=== PATIENT | female | born 1930 | race Caucasian/White ===

== ENCOUNTER 2016-11-28 10:49 | Emergency (ER) | payer MEDICARE ==
[~2016-11-28] VITALS: Ht 152.4 cm; Wt 55.0 kg
[~2016-11-28 10:49] MED LIST: CRAN1TAB6 PO; IPRA4AER PO; L.AC1CAP6 PO; LEVO25TA9 PO; LEVO750T20 PO; LIDO700A3 TOP; MIRT15TA6 PO
[2016-11-28 10:50] VITALS: Ht 152.4 cm; Wt 55.0 kg
--- OUTSIDE RECORDS SUMMARY | 2016-11-28 10:54 | XMS REPORT | Referral Summary ---
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 Name Role Phone Donald Drake Primary Care Physician [phone] Encounter VC Date(s): 05/29/16 - 05/29/16 [facility] [place], [address] [place] [id number]- Discharge Diagnosis: Abnormal chest CT Discharge Diagnosis: Depression Discharge Disposition: 01-Home or Self Care Attending Physician: Luis Fernando Drake MD Admitting Physician: Luis Fernando Drake MD Vital Signs Most recent to 1 oldest [Reference Range]: Temperature Tympanic 35.5 degC [36.6-38.1 degC] *LOW* (05/29/16 9:27 AM) Peripheral Pulse 80 bpm Rate [60-100 bpm] (05/29/16 9:27 AM) Blood Pressure 131/71 mmHg [90-140/60-90 mmHg] (05/29/16 9:27 AM) Problem List Condition Effective Dates Status Health Status Informant Aortic valve Resolved disorder(Confirmed) Bladder Resolved problem(Confirmed) Bronchiectasis(Confi Resolved rmed) Cataract, Resolved Right(Confirmed) Cervicobrachial Resolved syndrome(Confirmed) Chicken Resolved pox(Confirmed) Cystitis(Confirmed) Resolved Diverticulosis of Resolved colon(Confirmed) Dysphagia(Confirmed) Resolved Dysphonia(Confirmed) Resolved Esophageal reflux Resolved disease(Confirmed) Hematuria(Confirmed) Resolved High Resolved cholesterol(Confirme d) Hyperpotassemia(Conf Resolved irmed) Hypertension(Confirm Resolved ed) Influenza(Confirmed) Resolved Kidney Resolved cysts(Confirmed) Kidney Resolved stones(Confirmed) Lumbago(Confirmed) Resolved Lung Resolved cancer(Confirmed) Mitral valve Resolved disorder(Confirmed) Mixed Resolved hyperlipidemia(Confi rmed) Muscle Resolved weakness(Confirmed) Neoplasm Resolved bladder(Confirmed) Neutropenia(Confirme Resolved d) Obesity(Confirmed) Active patient Orthostatic Resolved hypotension(Confirme d) Osteoarthritis(Confi Resolved rmed) Osteopenia(Confirmed Resolved ) Osteoporosis(Confirm Resolved ed) Parasitic Resolved disease(Confirmed) Pneumonia(Confirmed) Resolved Pulmonary Resolved collapse(Confirmed) Pulmonary Resolved eosinophilia(Confirm ed) Scoliosis(Confirmed) Resolved Spinal Resolved stenosis(Confirmed) Trigonitis(Confirmed Resolved ) Allergies, Adverse Reactions, Alerts Substance Reaction Severity Status ciprofloxacin Stomach Pain Active morphine Nausea/Vomiting Active Medications Culturelle Digestive Health oral capsule 1 caps, Oral, BID, # 60 caps, 0 Refill(s), Pharmacy: [facility] #[id number] Start Date: 07/01/15 Status: Ordered levothyroxine 25 mcg (0.025 mg) oral tablet 25 mcg 1 tabs, Oral, Daily, # 90 tabs, 3 Refill(s), Pharmacy: [facility], 1 tabs Oral Daily Start Date: 02/04/16 Status: Ordered mirtazapine 15 mg oral tablet See Instructions, TAKE ONE TABLET BY MOUTH EVERY NIGHT AT BEDTIME, # 30 tabs, eRx: [facility] #[id number], TAKE ONE TABLET BY MOUTH EVERY NIGHT AT BEDTIME Start Date: 05/11/16 Status: Ordered Miscellaneous DME DME Item Light weight wheelchair [facility]: [id number] DX: R26.81, See Instructions, # 1 Each, 0 Refill(s), Supply Start Date: 08/20/15 Status: Ordered Tylenol Extra Strength 320 mg, Oral, q6hr, 0 Refill(s) Start Date: 06/14/14 Status: Ordered Results No data available for this section Immunizations Vaccine Date Refusal Reason influenza virus vaccine, inactivated 05/29/16 influenza virus vaccine, inactivated 08/20/15 influenza virus vaccine, inactivated 06/14/14 pneumococcal 13-valent conjugate vaccine 05/27/15 pneumococcal 23-polyvalent vaccine 06/22/06 tetanus-diphth toxoids (Td) adult/adol 09/21/05 Procedures Procedure Date Related Diagnosis Body Site Hospitalization for treatment of Pneumonia 2014 Cystourethroscopy and fulguration 04/20/05 Cystourethroscopy and excision / fulguration 10/25/02 Cystoscopy Hip replacement R Hydrodistention of glenohumeral joint using fluoroscopic guidance Post op infection right hip SLTLaser vaporization Tonsillectomy Vocal cord Injection Social History Social History Type Response Smoking Status Never smoker Assessment and Plan Extracted from: Title: 1 Month Follow Up Author: Luis Fernando Drake MD Date: 05/29/16 Impression and Plan Diagnosis Depression (PIO13-QN F32.9, Discharge, Medical). Abnormal chest CT (RRI10-OH R93.8, Discharge, Medical). Orders Orders (Selected) Outpatient Orders Future (On Hold) CT Chest w/o Contrast: .
--- OUTSIDE RECORDS SUMMARY | 2016-11-28 10:55 | XMS REPORT | Continuity of Care Document ---
Author Author [facility] Organization [facility] Address Unknown Phone Unavailable Support Name Relationship Address Phone KONSTANTIN RAYGOZA MD Caregiver [address] [place] [address] Unavailable FRANCIE DRAKE MD Caregiver [address] [place] [address] Unavailable CHEVY CALDERON MD Caregiver [address] [place] [address] Unavailable HIMANSHU MCELROY MD Caregiver [address] [place] [address] [place] [address] Unavailable ADITYA VALERA Next Of Kin [address] [place] [address] Insurance Providers Guarantor Conchis Valera Address [address] [place] [address] Email DENIED/NO TO PT [facility] Medicare Policy Number [id number] Subscriber's Name Conchis Valera Relationship 18 Self Effective Date 96 [facility] Policy Number [id number] Subscriber's Name Conchis Valera Relationship 18 Self Group Number PLANN Advance Directives Directive Response Recorded Date/Time Ordered Resuscitation Status Full Code 08/29/16 6:52pm Resuscitation Documents on File No 08/29/16 7:35pm DPOA for Healthcare Only Y Arslan Hernandez & Anusha Valera, Samantha Burks 08/29/16 7:35pm Living Will Yes 08/29/16 7:35pm Problems Active Problems Medical Problem Onset Date Status Acute kidney injury Unknown Resolved Anemia Unknown Chronic Bacteremia due to Streptococcus pneumoniae Unknown Acute Contusion of right hip Unknown Acute Coronavirus infection Unknown Dehydration Unknown Resolved Depression Unknown Chronic Diarrhea Unknown Resolved E. coli urinary tract infection Unknown Fall Unknown Acute Hypokalemia Unknown Resolved Hypothyroidism Unknown Chronic Neck strain Unknown Acute Scoliosis Unknown Chronic Severe sepsis Unknown Acute Weakness generalized Unknown Past Problems Medical Problem Onset Date Contusion of right hip Unknown Fall Unknown Neck strain Unknown Pneumonia Unknown Medications Current Home Medications Medication Dose Units Route Directions Days Qty Instructions Start Date Albuterol/Ipratropium (Combivent Respimat Inhal [place]) 120 Puff/4 Gm Inha 2 Puff Oral Four Times Daily as needed for Cough 1 Inhaler 09/03/16 Cranberry Conc/C/Bacill Coag (Cranberry Tablet) 1 Each Tablet 1 Tab Oral Daily 08/29/16 L.acidoph & Paracasei,B.lactis (Probiotic) 1 Each Capsule 1 Cap Oral Daily 08/29/16 Levofloxacin (Levaquin) 750 Mg Tablet 750 Mg Oral Every 2 Days At 6:30AM 5 Tablet Take on 09/05, 09/07, 09/09, 09/11, and 09/13. 09/03/16 Levothyroxine Sodium 25 Mcg Tablet 25 Mcg Oral Daily 08/29/16 Lidocaine (Lidoderm) 1 Each Adh..patch 1 Patch Topically Bedtime as needed for Pain 30 Apply to low back for 12 hours and then remove. 09/03/16 Mirtazapine 15 Mg Tablet 15 Mg Oral Bedtime 08/29/16 Past Home Medications Medication Directions Ordered Status Atorvastatin Calcium (Lipitor) 20 Mg Tablet, 1 Tab Oral Daily 11/20/09 Discontinued Social History Social History Problem Response Recorded Date/Time Onset Date Status Reason for Hospitalization pneumonia 09/03/2016 4:14pm Not Applicable Not Applicable Chewing Tobacco Status No 07/06/2012 10:43am Not Applicable Not Applicable Hx Substance Use No 08/29/2016 4:47pm Not Applicable Not Applicable Hx Alcohol Use No 08/29/2016 4:47pm Not Applicable Not Applicable Has the pt used tobacco in the last 12 months No 08/29/2016 7:42pm Not Applicable Not Applicable Query Response Start Date Stop Date Smoking Status Never smoker Hospital Discharge Instructions Instructions: Care Instructions: Reason for Hospitalization: pneumonia I was in the hospital because (patient own words): fever and "out of it", weak, no appetite Discharge Diet: regular Discharge Activity: As tolerates Follow Up Appointments: Dr. Drake in approximately one week Follow-up with Noel Perry on September 10 at 10:30am. Pending Lab / Results: Will be notified Patient Instructions: -Take Levaquin 1 tablet every other day through September 13-take on odd-numbered dates. -Use Combivent 2 puffs 4 times daily as needed to help you breathe -Final (repeat) blood culture report is pending however they are negative after 3 days and it is unlikely to change. I will contact you if I'm notified of a change. Wound/Incision Care: Not applicable Durable Medical Equipment: Use your walker as before Pain Management/Treatment: Tylenol as needed, try lidocaine patch applied to the low back in the area that hurts at bedtime. You can leave the patch on for 12 hours at a time but should leave it off for the remaining 12 hours of the day. Expected Signs/Symptoms: Cough and sputum production-should improve over time. Fatigued more easily than usual. Notify Physician If: Fever, worsening weakness or falls. More trouble breathing. During Business Hours:: Please call the physician's office at After Business Hours:: Please call [phone] and have the brine well operator page the physician. Condition at time of discharge: Good Plan of Care Discharge Date 09/03/16 4:40pm Disposition 01 DISCHARGED HOME, SELF-CARE Instructions/Education Provided DI for Sepsis -- Adult Prescriptions See Medication Section Care Plan and Goals See Discharge Instructions Section Functional Status Query Response Date Recorded Mobility Status Ambulatory w/assist September 03, 2016 4:14pm Assistive Devices Front Wheeled Walker September 03, 2016 4:14pm Activity Limitations Weakness September 03, 2016 4:14pm Feeding Ability Independent September 03, 2016 4:14pm Toileting Ability Assist September 03, 2016 4:14pm Grooming Ability Assist September 03, 2016 4:14pm Dressing Ability Independent September 03, 2016 4:14pm Driving Ability Dependent September 03, 2016 4:14pm Housework Ability Assist September 03, 2016 4:14pm Meal Preparation Ability Assist September 03, 2016 4:14pm Stair Climbing Ability Assist September 03, 2016 4:14pm Ability to complete ADL's impeded by Impaired Mobility September 03, 2016 4:14pm Cognitive/Perceptual Impairments Impaired vision September 03, 2016 4:14pm Visual Assistive Devices Glasses With patient September 01, 2016 7:16pm Preferred Method of Learning Reading September 01, 2016 7:16pm Allergies, Adverse Reactions, Alerts Allergen Type Severity Reaction Status Last Updated ciprofloxacin HCl Allergy Unknown NAUSEA/GI DISTRESS Active 09/02/16 Morphine Adverse Reaction Unknown NAUSEA AND VOMITING Active 08/29/16 Ciprofloxacin Allergy Unknown Active 08/29/16 Immunizations Query Response on File Recorded Date/Time Hx Influenza Vaccination Y Apr 2016 08/29/16 7:42pm Hx Pneumococcal Vaccination Y Apr 2015 08/29/16 7:42pm Hx Influenza Vaccination Y Apr 2016 08/29/16 7:42pm Influenza Vaccine Hx 08/30/16 12:15pm Vital Signs Acute Vital Signs Vital Response Date/Time Temperature (Fahrenheit) 97.0 deg F (96.8 - 99.1) 09/03/2016 8:00am Temperature (Calculated Celsius) 36.94754 degrees C (36.0 - 37.3) 09/03/2016 8:00am Pulse Rate (adult) 97 bpm (60 - 100) 09/03/2016 9:57am Respiratory Rate 18 breaths/min (10 - 20) 09/03/2016 9:57am O2 Sat by Pulse Oximetry 98 % (90 - 100) 09/03/2016 1:31pm Oxygen Delivery Method Room Air 08/31/2016 7:09am Oxygen Delivery Method Room Air 09/03/2016 9:57am Oxygen Flow Rate 0.50 L/min 09/03/2016 4:10am Blood Pressure 142/71 mm Hg 09/03/2016 9:57am Blood Pressure Source Automatic Cuff 09/03/2016 9:57am Height (Feet) 5 feet 09/02/2016 5:22pm Height (Inches) 2.00 inches 09/02/2016 5:22pm Weight (Kilograms) 47.200 kg 09/03/2016 8:00am Body Mass Index (BMI) 18.5 08/29/2016 7:26pm Results Laboratory Results Test Name Result Units Flags Reference Collection Date/Time Result Date/ Time Comments White Blood Count 5.6 T/MM3 4.5-11.0 09/02/2016 4:40am 09/02/2016 5: 32am Red Blood Count 3.29 M/MM3 L 4.00-5.20 09/02/2016 4:40am 09/02/2016 5: 32am Hemoglobin 10.1 GM/DL L 12-16 09/02/2016 4:40am 09/02/2016 5:32am Hematocrit 31.4 % L 36-46 09/02/2016 4:40am 09/02/2016 5:32am Mean Corpuscular Volume 95.4 UM3 80-100 09/02/2016 4:40am 09/02/2016 5: 32am Mean Corpuscular Hemoglobin 30.7 UUG 26-34 09/02/2016 4:402016 5:32am Mean Corpuscular Hemoglobin Concent 32.2 GM/DL 31-37 09/02/2016 4:4009/02/2016 5:32am RDW Standard Deviation 41.4 FL 36.9-50.2 09/02/2016 4:4009/02/2016 5 :32am Platelet Count 336 T/MM3 130-400 09/02/2016 4:40am 09/02/2016 5:32am Mean Platelet Volume 9.6 UM3 9.4-12.4 09/02/2016 4:4009/02/2016 5: 32am Neutrophils (%) (Auto) 62.5 % 33-66 09/02/2016 4:4009/02/2016 5: 32am Lymphocytes (%) (Auto) 18.2 % L 23-45 09/02/2016 4:4009/02/2016 5: 32am Monocytes (%) (Auto) 13.9 % H 0-9.0 09/02/2016 4:4009/02/2016 5:32am Eosinophils (%) (Auto) 4.5 % H 0-4 09/02/2016 4:4009/02/2016 5:32am Basophils (%) (Auto) 0.4 % 0-2 09/02/2016 4:4009/02/2016 5:32am Immature Granulocyte % (Auto) 0.5 % 0.0-0.5 09/02/2016 4:402016 5:32am Absolute Neutrophils (auto) 3.5 T/MM3 1.8-7.7 09/02/2016 4:40am 2016 5:32am Absolute Lymphocytes (auto) 1.0 T/MM3 1-4.8 09/02/2016 4:402016 5:32am Absolute Monocytes (auto) 0.8 T/MM3 0-0.8 09/02/2016 4:40am 09/02/2016 5:32am Absolute Eosinophils (auto) 0.3 T/MM3 0-0.5 09/02/2016 4:402016 5:32am Absolute Basophils (auto) 0.0 T/MM3 0-0.2 09/02/2016 4:40am 09/02/2016 5:32am Absolute Immature Granulocyte (auto 0.03 T/MM3 0.00-0.03 09/02/2016 4: 40am 09/02/2016 5:32am Neutrophils % (Manual) 70.0 % H 33-66 08/31/2016 4:38am 08/31/2016 5: 59am Band Neutrophils % 13.0 % D H 0-6 08/31/2016 4:38am 08/31/2016 5:59am Lymphocytes % (Manual) 14.0 % L 23-45 08/31/2016 4:38am 08/31/2016 5: 59am Monocytes % (Manual) 3.0 % 0-9.0 08/31/2016 4:38am 08/31/2016 5:59am Eosinophils % (Manual) 2.0 % 0-4 08/29/2016 5:05pm 08/29/2016 5:35pm Reactive Lymphocytes % 2.0 % H 0-0 08/29/2016 5:05pm 08/29/2016 5:35pm Band Neutrophils # 1.4 T/MM3 08/31/2016 4:38am 08/31/2016 5:59am Absolute Neutrophils (Manual) 7.3 T/MM3 1.8-7.7 08/31/2016 4:38am 08/31 5:59am Lymphocytes # (Manual) 1.5 T/MM3 1-4.8 08/31/2016 4:38am 08/31/2016 5: 59am Monocytes # (Manual) 0.3 T/MM3 0-0.8 08/31/2016 4:38am 08/31/2016 5: 59am Eosinophils # (Manual) 0.3 T/MM3 0-0.5 08/29/2016 5:05pm 08/29/2016 5: 35pm Reactive Lymphocytes # 0.3 T/MM3 H 0-0 08/29/2016 5:05pm 08/29/2016 5: 35pm Red Cell Morphology Comment NORMAL 08/31/2016 4:38am 08/31/2016 5: 59am Icterus Index < 2 0-7 09/02/2016 4:40am 09/02/2016 5:52am Chemistry Specimen Hemolysis < 15 0-25 09/02/2016 4:40am 09/02/2016 5 :52am 0-25: Specimen Exhibited No Hemolysis. Turbidity < 20 0-20 09/02/2016 4:40am 09/02/2016 5:52am Sodium Level 140 MEQ/L 134-144 09/02/2016 4:40am 09/02/2016 5:52am Potassium Level 4.0 MEQ/L 3.6-5 09/02/2016 4:40am 09/02/2016 5:52am Chloride Level 110 MEQ/L H 98-107 09/02/2016 4:40am 09/02/2016 5:52am Carbon Dioxide Level 21 MEQ/L L 22-30 09/02/2016 4:40am 09/02/2016 5: 52am Anion Gap 9 MEQ/L 5-15 09/02/2016 4:40am 09/02/2016 5:52am Blood Urea Nitrogen 14.0 MG/DL 7-17 09/02/2016 4:40am 09/02/2016 5: 52am Creatinine 0.8 MG/DL 0.7-1.2 09/02/2016 4:40am 09/02/2016 5:52am BUN/Creatinine Ratio 18 RATIO 6-26 09/02/2016 4:40am 09/02/2016 5:52am Glomerular Filtration Rate Calc 68 09/02/2016 4:40am 09/02/2016 5: 52am Glucose Level 76 MG/DL 65-110 09/02/2016 4:40am 09/02/2016 5:52am Calculated Osmolality 269 MOSM/KG 261-280 09/02/2016 4:40am 09/02/2016 5:52am Calcium Level 8.1 MG/DL L 8.4-10.2 09/02/2016 4:40am 09/02/2016 5:52am Total Bilirubin 0.60 MG/DL 0.20-1.30 08/29/2016 5:06pm 08/29/2016 5: 33pm Alkaline Phosphatase 106 U/L 38-126 08/29/2016 5:06pm 08/29/2016 5: 33pm Total Protein 6.9 G/DL 6.3-8.2 08/29/2016 5:06pm 08/29/2016 5:33pm Albumin 3.6 G/DL 3.5-5.0 08/29/2016 5:06pm 08/29/2016 5:33pm Globulin 3.3 G/DL 2.4-3.6 08/29/2016 5:06pm 08/29/2016 5:33pm Albumin/Globulin Ratio 1.1 RATIO 1.1-2.2 08/29/2016 5:06pm 08/29/2016 5 :33pm Aspartate Amino Transf (AST/SGOT) 31 U/L 14-36 08/29/2016 5:06pm 2015 5:33pm Alanine Aminotransferase (ALT/SGPT) 28 U/L 9-52 08/29/2016 5:06pm 08/29 5:33pm Plasma Lactate 2.2 MMOL/L 0.6-2.2 08/29/2016 5:06pm 08/29/2016 5:33pm Procalcitonin 6.50 NG/ML *H 09/01/2016 6:22am 09/01/2016 7:11am PCT </ =0.5 ng/mL - sepsis not likely; PCT >0.5 and </=2 ng/mL - sepsis possible; PCT >2 ng/mL - sepsis likely; PCT >/=10 ng/mL - systemic inflammatory response - sepsis or septic shock highly indicated. Adenovirus (PCR) NEGATIVE NEGATIVE 08/29/2016 6:20pm 08/29/2016 7: 38pm Coronavirus Type 229E (PCR) NEGATIVE NEGATIVE 08/29/2016 6:20pm 08/29 7:38pm Coronavirus Type HKU1 (PCR) NEGATIVE NEGATIVE 08/29/2016 6:20pm 08/29 7:38pm Coronavirus Type NL63 (PCR) NEGATIVE NEGATIVE 08/29/2016 6:20pm 08/29 7:38pm Coronavirus Type OC43 (PCR) DETECTED A NEGATIVE 08/29/2016 6:20pm 7:38pm Human Metapneumovirus (PCR) NEGATIVE NEGATIVE 08/29/2016 6:20pm 08/29 7:38pm Enterovirus/Rhinovirus (PCR) NEGATIVE NEGATIVE 08/29/2016 6:20pm 7:38pm Influenza Virus Type A (PCR) NEGATIVE NEGATIVE 08/29/2016 6:20pm 7:38pm Influenza Virus Type B (PCR) NEGATIVE NEGATIVE 08/29/2016 6:20pm 7:38pm Parainfluenza Type 1 (PCR) NEGATIVE NEGATIVE 08/29/2016 6:20pm 2015 7:38pm Parainfluenza Type 2 (PCR) NEGATIVE NEGATIVE 08/29/2016 6:20pm 2015 7:38pm Parainfluenza Type 3 (PCR) NEGATIVE NEGATIVE 08/29/2016 6:20pm 2015 7:38pm Parainfluenza Type 4 (PCR) NEGATIVE NEGATIVE 08/29/2016 6:20pm 2015 7:38pm Respiratory Syncytial Virus (PCR) NEGATIVE NEGATIVE 08/29/2016 6:20pm 08/29/2016 7:38pm Bordetella parapertussis DNA (PCR) NEGATIVE NEGATIVE 08/29/2016 6: 20pm 08/29/2016 7:38pm Chlamydia pneumoniae DNA (PCR) NEGATIVE NEGATIVE 08/29/2016 6:20pm 7:38pm Mycoplasma pneumoniae (PCR) NEGATIVE NEGATIVE 08/29/2016 6:20pm 08/29 7:38pm Urine Collection Type STRAIGHT CATH 08/29/2016 5:52pm 08/29/2016 5: 56pm Urine Color YELLOW YELLOW 08/29/2016 5:52pm 08/29/2016 5:56pm Urine Turbidity SL CLOUDY CLEAR 08/29/2016 5:52pm 08/29/2016 5:56pm Urine Specific [place] 1.015 1.015-1.025 08/29/2016 5:52pm 2015 5:56pm Urine pH 5.5 5.0-8.0 08/29/2016 5:52pm 08/29/2016 5:56pm Urine Leukocyte Esterase NEGATIVE NEGATIVE 08/29/2016 5:52pm 2015 5:56pm Urine Nitrite POSITIVE A NEGATIVE 08/29/2016 5:52pm 08/29/2016 5:56pm Urine Protein NEGATIVE NEGATIVE 08/29/2016 5:52pm 08/29/2016 5:56pm Urine Glucose (UA) NEGATIVE NEGATIVE 08/29/2016 5:52pm 08/29/2016 5: 56pm Urine Ketones NEGATIVE NEGATIVE 08/29/2016 5:52pm 08/29/2016 5:56pm Urine Urobilinogen 0.2 EU/DL NORMAL 08/29/2016 5:52pm 08/29/2016 5: 56pm Urine Bilirubin NEGATIVE NEGATIVE 08/29/2016 5:52pm 08/29/2016 5: 56pm Urine Blood NEGATIVE NEGATIVE 08/29/2016 5:52pm 08/29/2016 5:56pm Urine WBC NONE SEEN /HPF 0-5 08/29/2016 5:52pm 08/29/2016 6:04pm Urine RBC NONE SEEN /HPF 0-3 08/29/2016 5:52pm 08/29/2016 6:04pm Urine Bacteria 2+ H NEGATIVE 08/29/2016 5:52pm 08/29/2016 6:04pm Urine Culture Indicated CULT REFLEXED &SETUP 08/29/2016 5:52pm 6:04pm Microbiology Results Procedure Source Organism/Result Collection Date/Time Result Date/Time Result Status Urine Culture Urine, Straight Cath DIPHTHEROID BACILLUS 08/29/2016 6:04pm 08/31/2016 9:26am Final ESCHERICHIA COLI 08/29/2016 6:04pm 08/31/2016 9:26am Final Blood Culture Peripheral/Iv Start NO GROWTH AFTER 72 HOURS 08/31/2016 4: 38am 09/03/2016 4:49am Preliminary Name: CONCHIS VALERA Unit #: [id number] : 1930 Sex: F Admit Date: 08/29/16 Loc / Svc: MED Discharge Date: DIAGNOSTIC IMAGING REPORT Report #: [id number] [facility] M[place] Hamm INDICATION: ITS.REASON: pneumonia PROCEDURE: CHEST 2-VIEWS UPRIGHT (PA \\T\\ LAT) Encounter: Initial COMPARISON: August 29, 2016 FINDINGS: Continued lobar consolidation in the right middle lobe with small bilateral effusions. Small amount of left basilar airspace disease is new. Left apical pleural thickening. No pneumothorax. Heart size and mediastinal contours are stable. Impression: Continued right middle lobe consolidation with increasing small effusions. . Procedures No known history of procedures. Encounters Encounter Location Arrival/Admit Date Discharge/Depart Date Attending Provider Discharged Inpatient [facility] 08/29/16 6:52pm 09/03/16 4:40pm CHEVY CALDERON MD
--- OUTSIDE RECORDS SUMMARY | 2016-11-28 10:55 | XMS REPORT | Referral Summary ---
Author Author [facility], Family Medicine Organization [facility] Address Unknown Phone Unavailable Care Team Providers Care Enamel Buffer Name Role Phone Donald Drake Primary Care Physician [phone] Encounter VC Date(s): 09/10/16 - 09/10/16 [facility], [address] [place] [address]- Discharge Disposition: 01-Home or Self Care Attending Physician: Serg Cade APRN Admitting Physician: Serg Cade APRN Vital Signs Most recent to 1 oldest [Reference Range]: Temperature Tympanic 35.0 degC [36.6-38.1 degC] *LOW* (09/10/16 10:24 AM) Peripheral Pulse 84 bpm Rate [60-100 bpm] (09/10/16 10:24 AM) Respiratory Rate 16 br/min [14-20 br/min] (09/10/16 10:24 AM) Blood Pressure 136/62 mmHg [90-140/60-90 mmHg] (09/10/16 10:24 AM) Problem List Condition Effective Dates Status [...] Stomach Pain Active morphine Nausea/Vomiting Active Medications Combivent Respimat 2 puffs, Inhalation, QID, as needed for cough, 0 Refill(s) Start Date: 09/04/16 Status: Ordered Culturelle Digestive Health oral capsule 1 caps, Oral, BID, # 60 caps, 0 Refill(s), Pharmacy: [facility] #[id number] Start Date: 07/01/15 Status: Ordered levoFLOXacin 750 mg oral tablet 750 mg 1 tabs, Oral, q48hr, 0 Refill(s) Start Date: 09/04/16 Stop Date: 09/14/16 Status: Ordered levothyroxine 25 mcg (0.025 mg) oral tablet 25 mcg 1 tabs, Oral, Daily, # 90 tabs, 3 Refill(s), Pharmacy: [facility], 1 tabs Oral Daily Start Date: 02/04/16 Status: Ordered Lidoderm 5% topical film 1 patches, Topical, Daily, 0 Refill(s) Start Date: 09/04/16 Status: Ordered mirtazapine 15 mg oral tablet See Instructions, TAKE ONE TABLET BY MOUTH EVERY NIGHT AT BEDTIME, # 90 tabs, 3 Refill(s), Pharmacy: [facility] #[id number], TAKE ONE TABLET BY MOUTH EVERY NIGHT AT BEDTIME Start Date: 06/11/16 Status: Ordered Miscellaneous DME DME Item Light weight wheelchair [facility]: [id number] DX: R26.81, See Instructions, # 1 Each, 0 Refill(s), Supply Start Date: 08/20/15 Status: Ordered traMADol See Instructions, Oral, 0 Refill(s) Start Date: 09/10/16 Status: Ordered Tylenol Extra Strength 320 mg, Oral, q6hr, 0 Refill(s) Start Date: 06/14/14 Status: Ordered Results Hematology Most recent to 1 oldest [Reference Range]: WBC [4.8-10.8 7.4 10*3/uL 10*3/uL] (09/10/16 11:22 AM) RBC [4.00-5.20] 3.57 *LOW* (09/10/16:22 AM) Hgb [12.0-16.0 10.6 gm/dL gm/dL] *LOW* (09/10/16 AM) Hct [37.0-47.0 %] 34.9 % *LOW* (09/10/16: AM) MCV [82.0-99.0 fL] 97.8 fL (09/10/16: AM) MCH [27.0-32.0 pg] 29.7 pg (09/10/16: AM) MCHC [32.0-36.0 30.4 gm/dL gm/dL] *LOW* (09/10/16: AM) RDW [11.5-14.5 %] 13.2 % (09/10/16:22 AM) Platelet [150-400 633 10*3/uL 10*3/uL] *HI* (09/10/16: AM) MPV [8.8-14.8 fL] 8.4 fL *LOW* (09/10/16:22 AM) Immature 0.9 % Granulocytes (09/10/16:22 AM) [0.0-1.0 %] Neutrophils [51-75 68 % %] (09/10/16: AM) Lymphocytes [20-46 14 % %] *LOW* (09/10/16:22 AM) Monocytes [4-11 %] 15 % *HI* (09/10/16: AM) Eosinophils [0-4 %] 2 % (09/10/16: AM) Basophils [0-2 %] 0 % (09/10/16:22 AM) Neutro Absolute 5.01 [1.90-7.00] (09/10/16:22 AM) Lymph Absolute 1.06 [0.80-3.30] (09/10/16: AM) Churchill Absolute 1.11 [0.30-1.00] *HI* (09/10/16 11:22 AM) Eos Absolute 0.14 [0.00-0.50] (09/10/16 11:22 AM) Baso Absolute 0.02 [0.00-0.20] (09/10/16 11:22 AM) Chemistry Most recent to 1 oldest [Reference Range]: Sodium Lvl [135-144 142 mEq/L mEq/L] (09/10/16:22 AM) Potassium Lvl 4.8 mEq/L [3.5-5.2 mEq/L] (09/10/16 11:22 AM) Chloride [99-111 107 mEq/L mEq/L] (09/10/16:22 AM) CO2 [22-31 mEq/L] 27 mEq/L (09/10/16:22 AM) AGAP [3-20] 8 (09/10/16:22 AM) BUN [10-20 mg/dL] 23 mg/dL *HI* (09/10/16:22 AM) Glucose Lvl [70-99 89 mg/dL mg/dL] (09/10/16 11:22 AM) Creatinine Lvl 1.20 mg/dL [0.57-1.11 mg/dL] *HI* (09/10/16 11:22 AM) eGFR [>60 mL/min] 43 mL/min 1 *ABN* (09/10/16:22 AM) Calcium Lvl 8.4 mg/dL [8.9-10.5 mg/dL] *LOW* (09/10/16 11:22 AM) 1Result Comment: Multiply eGFR results by 1.21 for race. Immunizations Given and Recorded Vaccine Date Status Refusal Reason influenza virus vaccine, inactivated 05/29/16 Given influenza virus vaccine, inactivated 08/20/15 Given influenza virus vaccine, inactivated 06/14/14 Recorded pneumococcal 13-valent conjugate vaccine 05/27/15 Given pneumococcal 23-polyvalent vaccine 06/22/06 Recorded tetanus-diphth toxoids (Td) adult/adol 09/21/05 Given Procedures Procedure Date Related Diagnosis Body Site Hospitalization for treatment of Pneumonia 2014 Cystourethroscopy and fulguration 04/20/05 Cystourethroscopy and excision / fulguration 10/25/02 Cystoscopy Hip replacement R Hydrodistention of glenohumeral joint using fluoroscopic guidance Post op infection right hip SLTLaser vaporization Tonsillectomy Vocal cord Injection Social History Social History Type Response Smoking Status Never smoker Assessment and Plan No data available for this section
--- OUTSIDE RECORDS SUMMARY | 2016-11-28 10:56 | XMS REPORT | Referral Summary ---
Author Author [facility] Organization [facility] Address Unknown Phone Unavailable Care Team Providers Care Glass Or Mirror Inspector Name Role Phone Donald Drake Primary Care Physician [phone] Encounter VC Date(s): 10/15/16 - 10/15/16 [facility], [address] [place] [address]- Discharge Diagnosis: Acute UTI Discharge Diagnosis: Abnormal chest CT Discharge Disposition: 01-Home or Self Care Attending Physician: Luis Fernando Drake MD Admitting Physician: Luis Fernando Drake MD Vital Signs Most recent to 1 oldest [Reference Range]: Temperature Tympanic 35.9 degC [36.6-38.1 degC] *LOW* (10/15/16 10:51 AM) Peripheral Pulse 99 bpm Rate [60-100 bpm] (10/15/16 10:51 AM) Blood Pressure 140/70 mmHg [90-140/60-90 mmHg] (10/15/16 10:51 AM) Problem List Condition Effective Dates Status [...] Stomach Pain Active morphine Nausea/Vomiting Active Medications Bactrim DS 800 mg-160 mg oral tablet 1 tabs, Oral, BID, X 7 days, # 14 tabs, 0 Refill(s), Pharmacy: [facility] #[id number] Start Date: 10/15/16 Stop Date: 10/22/16 Status: Ordered Combivent Respimat 2 puffs, Inhalation, QID, as needed for cough, 0 Refill(s) Start Date: 09/04/16 Status: Ordered Culturee Digestive Health oral capsule 1 caps, Oral, BID, # 60 caps, 0 Refill(s), Pharmacy: [facility] #[id number] Start Date: 07/01/15 Status: Ordered levothyroxine 25 [...] BEDTIME, # 90 tabs, 3 Refill(s), Pharmacy: [facility] #[id number], TAKE ONE TABLET BY MOUTH EVERY NIGHT AT BEDTIME Start Date: 06/11/16 Status: Ordered Miscellaneous DME DME Item Light weight wheelchair [facility]: [id number] DX: R26.81, See Instructions, # 1 Each, 0 Refill(s), Supply Start Date: 08/20/15 Status: Ordered traMADol See Instructions, Oral, 0 Refill(s) Start Date: 09/10/16 Status: Ordered Tylenol Extra Strength 320 mg, Oral, q6hr, 0 Refill(s) Start Date: 06/14/14 Status: Ordered Results Urinalysis Most recent to 1 oldest [Reference Range]: UA Color Yellow (10/15/16 11:42 AM) UA Appear Sl Cloudy (10/15/16 11:42 AM) UA pH [5.0-8.0] 5.5 (10/15/16 11:42 AM) UA Leuk Est Pos 2+ [Negative] *ABN* (10/15/16 11:42 AM) UA Nitrite Negative [Negative] (10/15/16 11:42 AM) UA Protein Pos 1+ [Negative] *ABN* (10/15/16 11:42 AM) UA Glucose Negative [Negative] (10/15/16 11:42 AM) UA Ketones Negative [Negative] (10/15/16 11:42 AM) UA Urobilinogen 0.2 mg/dL [<=1.0 mg/dL] (10/15/16 11:42 AM) UA Bili [Negative] Negative (10/15/16 11:42 AM) UA Blood [Negative] Trace *ABN* (10/15/16 11:42 AM) UA Spec Grav 1.020 [1.003-1.030] (10/15/16 11:42 AM) Type Cl Catch (10/15/16 11:42 AM) UA WBC [0-4 /HPF] >50 /HPF *ABN* (10/15/16 11:42 AM) UA RBC [0-2] 2-5 (10/15/16 11:42 AM) Epithelial Cells 0-2 (10/15/16 11:42 AM) UA Bacteria Numerous *ABN* (10/15/16 11:42 AM) Immunizations Given and Recorded Vaccine Date Status [...] smoker Assessment and Plan Extracted from: Title: Acute OV Author: Luis Fernando Drake MD Date: 10/15/16 Impression and Plan Diagnosis Abnormal urination ([id number] R39.198, Working, Medical). Orders Orders (Selected) Outpatient Orders Ordered (Pending Collection) Urinalysis with Culture if Indicated: .
[2016-11-28] MEDS ORDERED: NORMAL SALINE 1,000 ML IV ONE (11:13)
--- NOTE | 2016-11-28 11:17 | NUR ---
TO CT PER CART
[2016-11-28] MEDS ORDERED: LIDO700A30 TD (11:29)
[2016-11-28] MEDS ORDERED: ACET-62 PO (11:29)
--- NOTE | 2016-11-28 11:35 | NUR ---
RETURNED FROM CT
[2016-11-28 11:56] LABS: BASOPHILS % (AUTO) 0.4 % (0-2); EOSINOPHILS # (AUTO) 0.1 T/MM3 (0-0.5); EOSINOPHILS % (AUTO) 1.5 % (0-4); HCT - HEMATOCRIT 34.1 % (36-46); HGB - HEMOGLOBIN 10.5 GM/DL (12-16); IMMATURE GRANULOCYTE # (AUTO) 0.02 T/MM3 (0.00-0.03); IMMATURE GRANULOCYTE % (AUTO) 0.2 % (0.0-0.5); LYMPHOCYTES % (AUTO) 24.7 % (23-45); MEAN CORPUSCULAR HGB 30.3 UUG (26-34); MEAN CORPUSCULAR HGB CONC(MCHC 30.8 GM/DL (31-37); MEAN CORPUSCULAR VOLUME 98.6 UM3 (80-100); MEAN PLATELET VOLUME 8.4 UM3 (9.4-12.4); MONOCYTES # (AUTO) 0.7 T/MM3 (0-0.8); MONOCYTES % (AUTO) 8.6 % (0-9.0); NEUTROPHILS #(AUTO)-ABSOLUTE 5.2 T/MM3 (1.8-7.7); NEUTROPHILS % (AUTO) 64.6 % (33-66); RED BLOOD COUNT 3.46 M/MM3 (4.00-5.20)
[2016-11-28 12:04] LABS: INR 1.04 (0.76-1.04); PROTHROMBIN TIME 11.3 SEC (9.31-12.49); PTT 24.1 SEC (24-36)
[2016-11-28 12:06] LABS: POTASSIUM 5.2 MEQ/L (3.6-5)
[2016-11-28 12:07] LABS: ALBUMIN 3.9 G/DL (3.5-5.0); ALBUMIN/GLOBULIN RATIO 1.1 RATIO (1.1-2.2); ALKALINE PHOSPHATASE 132 U/L (38-126); ALT (SGPT) 23 U/L (9-52); ANION GAP 12 MEQ/L (5-15); AST (SGOT) 21 U/L (14-36); BUN/CREATININE RATIO 28 RATIO (6-26); CALCIUM 9.2 MG/DL (8.4-10.2); CHLORIDE 108 MEQ/L (98-107); CO2 - CARBON DIOXIDE 23 MEQ/L (22-30); CREATININE 1.3 MG/DL (0.7-1.2); GLOMERULAR FILTRATION RATE 39; GLUCOSE 103 MG/DL (65-110); SODIUM 143 MEQ/L (134-144); TOTAL PROTEIN 7.4 G/DL (6.3-8.2)
--- NOTE | 2016-11-28 13:18 | ERPDOC ---
Departure Disposition Decision Date: Nov 28, 2016 Disposition Decision Time: 13:21 Disposition: 01 DISCHARGED HOME, SELF-CARE Impression Impression Impression: Primary Impression: Right sided weakness Severity: Moderate Condition: Improved Seen By: Physician only Referrals: FRANCIE HILLIARD MD (Family) Patient Instructions: Transient Ischemic Attack (ED) Problems/Meds/Labs Reviewed?: Yes Medications reviewed and manag: Yes Additional Instructions: Please call the hospital at [phone] to schedule an MRI of the brain, I have sent an order with you for this. Follow-up with her primary care provider after the MRI is completed. Follow up care ordered?: Yes Mental Status: Alert, Oriented HPI - General Medical General Chief Complaint: Weakness/Neuro Symptoms Stated Complaint: EPISODES OF R SIDE OF BODY NOT WORKING Time Seen by Provider: 11:12 HPI - General Medical Initial Comments 86-year-old female presents with intermittent right sided weakness. This will last for several minutes, seems to come and go every couple days. Patient has no history of CVA, has had generalized weakness which is progressive. She visited with her primary care provider last week, but did not mention this to him. Her granddaughter is with her, and is the one that pushed her to come in today because she had concerns with the unilateral weakness. No change in medications, no injuries, no fevers or chills. Allergies: Coded Allergies: ciprofloxacin (Verified Allergy, Unknown, 11/28/16) ciprofloxacin HCl (Verified Allergy, Unknown, NAUSEA/GI DISTRESS, 11/28/16) morphine (Verified Adverse Reaction, Unknown, NAUSEA AND VOMITING, 11/28/16) Past History Patient Surgical History Right hip replacement Past Medical History Metabolic: hypothyroidism Cardiac: angina Respiratory: pneumonia Female: UTI Musculoskeletal: osteoarthritis Surgical History General: other, tonsils Reproductive/: other Joint: hip Family History Family PMH: FOUND: CAD, DC, cancer, depression Vaccines Hx Influenza Vaccination: Yes (Apr 2016) Hx Pneumococcal Vaccination: Yes (Apr 2015) Social History Smoking Status: Never smoker Substance Use Type: does not use Current Occupational Status: retired Record Review Pertinent history updated: Yes Review of Systems Constitutional Constitutional: difficulty falling asleep, weight loss Musculoskeletal General: see HPI Neurological General: see HPI All other Systems All Other Systems: Reviewed and Negative Physical Exam General General Nourishment: no acute distress, adult, thin General Body Habitus: well groomed Vitals and Pain First Documented Vital Signs Date Time Temp Pulse Resp B/P Pulse Ox O2 Delivery O2 Flow Rate FiO2 11/28/16 10:50 97.7 84 16 133/63 97 Room Air Weight: Kilograms: 55.000 Height (feet): 5 Height (inches): 0 Triage Pain Scale: Normal Exams: Head: Normocephalic w/o trauma Eyes: Pupils are PERRLA w/ EOMI, No scleral icterus, irritation, or foreign bodies noted Neck: Full range of motion, without adenopathy, JVD, bruits or thyromegaly Chest/Resp: Clear all sanabria, with good airflow, and symmetry bilaterally CV: Regular rate and rhythm, without murmur or gallop, Pulses 2+ all extremities, capillary refill, <2 seconds all ext., no pedal edema noted Abdomen: Bowel sounds positive, soft, non-tender, non-distended, no hepatosplenomegaly, masses or bruits noted Musculoskeletal: No tenderness, or deformity noted, good range of motion, all extremities Neurologic: Patient is alert, and oriented, cranial nerves, motor/sensory/ cerebellar, exams w/o gross deficits, to observation Psychiatric: Patient exhibits, appropriate attention, emotion and affect Neurologic (brief) Neurological Brief: FOUND: CN w/o gross def to obs, motor-no gross deficits, sensory-no gross deficits Differential Diagnoses Considering: CVA, Encephalitis, Hypo/Hyperglycemia, Intracranial Hemorrhage, Medication Effect, Pneumonia, Poisoning/Accidental OD, Pulmonary Embolus, TIA Progress Results/Orders Orders Procedure Category Date Status Time Oxygen Administration EDM 11/28/16 Transmitted 11:13 Iv Lock (Ed Only) EDM 11/28/16 Transmitted 11:13 Cbc W/Auto LAB 11/28/16 Complete Diff-Reflex Manual 11:13 Cmp - Comprehensive LAB 11/28/16 Complete Metabolic 11:13 Troponin I W LAB 11/28/16 Complete Hemolysis Index 11:13 INR LAB 11/28/16 Complete 11:13 PTT LAB 11/28/16 Complete 11:13 EKG EKG 11/28/16 Taken 11:13 Chest 1 View RAD 11/28/16 Taken 11:13 Ct Head W/O Contrast CT 11/28/16 Taken 11:13 Nih Stroke Scale WILMER 11/28/16 In Process 11:13 Normal Saline (Normal PHA 4/1/17 In Process Saline Iv) 11:13 Lab Results Laboratory Tests Test 11/28/16 11:50 White Blood Count 8.0T/MM3 Red Blood Count 3.46M/MM3 Hemoglobin 10.5GM/DL Hematocrit 34.1% Mean Corpuscular Volume 98.6UM3 Mean Corpuscular Hemoglobin 30.3UUG Mean Corpuscular Hemoglobin Concent 30.8GM/DL RDW Standard Deviation 47.7FL Platelet Count 526T/MM3 Mean Platelet Volume 8.4UM3 Immature Granulocyte % (Auto) 0.2% Neutrophils (%) (Auto) 64.6% Lymphocytes (%) (Auto) 24.7% Monocytes (%) (Auto) 8.6% Eosinophils (%) (Auto) 1.5% Basophils (%) (Auto) 0.4% Absolute Immature Granulocyte (auto 0.02T/MM3 Absolute Neutrophils (auto) 5.2T/MM3 Absolute Lymphocytes (auto) 2.0T/MM3 Absolute Monocytes (auto) 0.7T/MM3 Absolute Eosinophils (auto) 0.1T/MM3 Absolute Basophils (auto) 0.0T/MM3 Prothromb Time International Ratio 1.04 Activated Partial Thromboplast Time 24.1SEC Turbidity < 20 Sodium Level 143MEQ/L Potassium Level 5.2MEQ/L Chloride Level 108MEQ/L Carbon Dioxide Level 23MEQ/L Anion Gap 12MEQ/L Blood Urea Nitrogen 36.0MG/DL Creatinine 1.3MG/DL Glomerular Filtration Rate Calc 39 BUN/Creatinine Ratio 28RATIO Glucose Level 103MG/DL Calculated Osmolality 283MOSM/KG Calcium Level 9.2MG/DL Total Bilirubin 0.50MG/DL Icterus Index < 2 Aspartate Amino Transf (AST/SGOT) 21U/L Alanine Aminotransferase (ALT/SGPT) 23U/L Alkaline Phosphatase 132U/L Troponin I < 0.012ng/ml Total Protein 7.4G/DL Albumin 3.9G/DL Globulin 3.5G/DL Albumin/Globulin Ratio 1.1RATIO Chemistry Specimen Hemolysis < 15 Medications Current ED Medications Sodium Chloride (Normal Saline IV) 1,000 ml @ 250 mls/hr Q4H ONCE IV Last administered on 11/28/16t 11:56; Start 11/28/16 at 11:13; Stop 11/28/16 at 15:[address] head is negative, labs returned within reason. Patient would be appropriately worked up with an MRI to make sure that there is no CVA that is being missed. I did agree to give her an outpatient order for this, she'll then follow up with Dr. HILLIARD after the MRI is completed. At this point I find no obvious cause for the intermittent weakness, I am concerned that it is unilateral. Patient is encouraged to follow up with this in the ED during an episode so that we can get better imaging at that time. DERRELL PAYNE MD Nov 28, 2016 13:18
[2016-11-28 13:30] VITALS: BP 148/65; PULSE 75; RESP 16; TEMP 97.8; O2SAT 100
--- NOTE | 2016-11-29 09:49 | DI ---
Indication: ITS.REASON: Right-sided weakness PROCEDURE: CHEST 1 VIEW: Encounter: Initial Comparison: September 02, 2016 Findings: Prior right middle and lobe airspace consolidation has improved with a small amount of opacity still present. Upper lung sanabria are clear. Left apical pleural thickening or scarring. No pleural effusion or pneumothorax. Heart size and mediastinal contour are stable. Pulmonary vascularity appears normal. Impression: Airspace disease in the right lung base has improved and could be due to scarring or residual/recurrent pneumonia or aspiration. Recommend clinical and laboratory correlation. .
--- NOTE | 2016-11-29 09:50 | DI ---
Indication: ITS.REASON: Weakness PROCEDURE: CT HEAD W/O CONTRAST: Encounter: Initial Comparison: Head CT dated April 18, 2016 Technique: Axial CT images through the head were performed without contrast. Iterative Reconstruction dose reducing technique was utilized. FINDINGS: The ventricles are of normal size, shape, and contour for the patient's age. There are scattered areas of low attenuation in the white matter which most likely represent changes from chronic microvascular ischemia. The brainstem, cerebellum, and cerebral hemispheres otherwise have a normal morphology and CT attenuation. There is no evidence of midline displacement. No hemorrhage, signs of acute territorial stroke, mass effect, mass lesions, or edema is evident. The visualized portions of the skull base, midface, and calvarium demonstrate no abnormality. The paranasal sinuses are well aerated and free of significant disease. The tympanic and mastoid cavities appear normal. IMPRESSION: No acute intracranial abnormality or hemorrhage. There is a preliminary report by virtual radiologic. .
== END 2016-11-28 13:30 | disposition home or self-care (01) ==
LOC: ED 10:49
DX: R53.1 Weakness (principal); Z79.899 Other long term (current) drug therapy
CPT/HCPCS: 70450; 71010; 80053; 84484; 85025; 85610; 85730; 93005; 96360; 99284; J7030

== ENCOUNTER → 2016-11-30 | Outpatient (CLI) | payer MEDICARE ==
[~2016-11-30] MED LIST changes: +ACET-62 PO; -IPRA4AER PO; -LEVO750T20 PO; -LIDO700A3 TOP; +LIDO700A30 TD
--- NOTE | 2016-11-30 12:55 | DI ---
Indication: ITS.REASON: RT SIDED WEAKNESS PROCEDURE: MRI BRAIN W/O CONTRAST: Encounter: Initial Comparisons: Head CT dated November 28, 2016 Technique: Multiplanar, multisequence, MR imaging of the head without contrast was acquired. FINDINGS: There are multifocal areas of punctate diffusion restriction seen in the medial left posterior frontal and parietal lobe. There is also involvement of the left pericallosal area and a tiny focus of involvement right frontal pericallosal white matter. Moderate atrophy. These regions of diffusion restriction have T2/FLAIR hyperintensity as expected superimposed upon a background of multifocal white matter disease. The ventricles are of normal size, shape, and contour for the patient's age. There is no evidence of an intracranial mass lesion, intracranial hemorrhage, or hydrocephalus. The visualized portions of the orbits, calvarium, paranasal sinuses, and skull base demonstrate no significant abnormality. IMPRESSION: Multifocal small areas of acute ischemia which appear to be watershed type within the left frontal and parietal lobes primarily. Embolic etiology is also possible. .
== END ==
LOC: IMA 10:08
PROVIDERS: ATTEND Family Medicine
DX: I67.82 Cerebral ischemia (principal); R53.1 Weakness